=== PATIENT | male | born 1960 | race Caucasian/White ===

== ENCOUNTER 2021-11-10 07:40 | Outpatient (CLI) | payer BC | END 2021-11-10 07:41 | disposition home or self-care (01) | LOC: CSHULT 07:40 | PROVIDERS: ATTEND Physician Assistant | DX: K76.0 Fatty (change of) liver, not elsewhere classified (principal); K80.20 Calculus of gallbladder without cholecystitis without obstruction | CPT/HCPCS: 76700 ==